=== PATIENT | male | born 1960 ===

== ENCOUNTER 2022-04-08 15:31 | Observation (INO) | payer MEDICARE ==
[~2022-04-08] VITALS: Ht 187.9 cm; Wt 84.0 kg
--- NOTE | 2022-04-08 18:33 | NUR ---
ASSUMPTION OF CARE PT ARRIVED TO PCU APPROX. 1710. HE WAS ABLE TO TRANSFER IND. TO RECLINER CHAIR. HE IS ALERT AND ORIENTED X 4. HE IS ABLE TO MAKE HIS NEEDS KNOWN AND ANSWERS QUESTIONS APPROPRIATELY. HE REPORTS RIGHT SHOULDER PAIN 2/10 BUT DENIES FEELINGS OF CHEST PAIN/PRESSURE. HE DENIES FEELINGS OF NAUSEA, NO COUGH NOTED. IV IN RIGHT AC IS SALINE LOCKED. HE WAS GIVEN SNACKS AND ATE 100%. HE HAS A SOFT NECK BRACE THAT HE REMOVED UPON ARRIVAL TO PCU. PT NOW WATCHING TV. CALL LIGHT IS WITHIN REACH. WILL CONTINUE TO MONITOR UNTIL REPORT GIVEN.
[2022-04-08 18:55] LABS: CPK Creatine Kinase 54 U/L (39-308)
[2022-04-09 02:19] LABS: BASOPHILS ABSOLUTE AUTO 0.04 K/mm3 (0.00-0.23); BASOPHILS PERCENT AUTO 0 % (0-2); EOSINOPHILS ABSOLUTE AUTO 0.17 K/mm3 (0.00-0.68); EOSINOPHILS PERCENT AUTO 2 % (0-6); Hematocrit 43.8 % (37.0-53.0); Hemoglobin 15.4 g/dL (13.5-17.5); IMMATURE GRAN ABSOLUTE AUTO 0.04 K/mm3 (0.00-0.10); IMMATURE GRAN PERCENT AUTO 0 % (0-1); LYMPHOCYTES ABSOLUTE AUTO 3.49 K/mm3 (0.84-5.20); LYMPHOCYTES PERCENT AUTO 35 % (21-46); MONOCYTES ABSOLUTE AUTO 1.18 K/mm3 (0.16-1.47); MONOCYTES PERCENT AUTO 12 % (4-13); Mean Corpuscular HGB 33.7 pg (26.0-34.0); Mean Corpuscular HGB Conc 35.2 g/dL (31.5-36.5); Mean Corpuscular Volume 96 fL (80-100); Mean Platelet Volume 10.4 fL (9.1-12.4); NEUTROPHILS ABSOLUTE AUTO 5.07 K/mm3 (1.96-9.15); NEUTROPHILS PERCENT AUTO 51 % (41-73); Platelet Count 257 K/mm3 (150-400); RDW Coefficient Variation 13.2 % (11.7-14.2); RDW Standard Deviation 46.6 fL (35.1-46.3); Red Blood Cell Count 4.57 M/mm3 (4.30-5.90); White Blood Cell Count 9.99 K/mm3 (4.00-11.30)
[2022-04-09 02:37] LABS: Albumin, Blood 2.8 g/dL (3.4-5.0); Albumin/Globulin Ratio 0.9 (0.8-1.8); Bilirubin, Total 0.3 mg/dL (0.1-1.0); Bun/Creatinine Ratio 23.1 (12.0-20.0); Calcium, Blood 8.5 mg/dL (8.5-10.1); Globulin, Blood 3.2 g/dL (2.2-4.0); Potassium, Blood 4.1 mmol/L (3.5-5.5)
[2022-04-09 02:39] LABS: CPK Creatine Kinase 40 U/L (39-308)
--- NOTE | 2022-04-09 05:37 | NUR ---
SHIFT SUMMARY PT IS A/Ox4 AND FOLLOWS DIRECTIONS GIVEN BY STAFF. PT HAS NOT REPORTED ANY CP OR CHEST PRESSURE T/O THE SHIFT. HIGH SENSITIVITY TROP HAS DECREASED SINCE YESTERDAY. PT NPO SINCE MIDNIGHT FOR STESS TEST THIS AM. PT ON HEPARIN DRIP RUNNING PER ORDERS. SEE EMAR FOR RATE. PT RPORTS OCCASIONAL RIGHT SHOULDER PAIN THAT DOES NOT RAIDIATE. BP STABLE RANGING IN THE 110'S WITH HR BEING SINUS. VSS, NADN T/O THE SHIFT
[2022-04-09] MEDS ORDERED: AMLODIPINE BES2.5 MG PO (09:14)
[2022-04-09] MEDS ORDERED: NEURONTIN300 MG PO (09:14)
[2022-04-09] MEDS ORDERED: CREON DR 24,001 EACH PO (09:15)
[2022-04-09] MEDS ORDERED: LISI20 PO (09:15)
[2022-04-09] MEDS ORDERED: BUPROPION HCL200 M1 PO (09:16)
--- NOTE | 2022-04-09 10:47 | NUR ---
AM NOTE: PATIENT ALERT AND ORIENTED X4. RECENT 03/24 CERVICAL SURG WITH 2 INCISION POSTERIOR NECK AND ONE INCISION ON RIGHT ANTERIOR NECK. F/U APPOINT ON TUESDAY. PATIENT NECK AND UPPER ARM ROM RESTRICTED. NO BENDING, LIFTING, OR TURNING. DENIES NUMBNESS/TINGLING. UP WITH SBA. ON ROOM AIR SATING ABOVE 95%. SMOKING HISTORY. LUNGS CLEAR IN UPPER AND COARSE IN LOWER. DENIES COUGH/SOB. TELE SHOWING SINUS RHYTHM WITH HR 70'S. DENIES CHEST PAIN/PRESSURE. DENIES ANY PALPITATIONS. PPP. HEPARIN GTT INFUSING PER EMAR. MURMUR HEARD. BP STABLE. PLAN FOR CARDIAC STRESS TEST STARTING 1105 AM. WILL BE NPO AT MIDNIGHT. DENIES ABDOMINAL PAIN/NAUSEA. TOLERATING PO DIET. [facility] SOFT DIET ORDERED. PATIENT STATES AT TIMES HARD TO SWALLOW WITH CERIVAL NECK SURG. PILLS WITH APPLESAUCE. SUCTION AT BEDSIDE. DENIES NEEDS AT THIS TIME. MED REC COMPLETED WITH PATIENT AND ACCURATE. HOME MEDS STILL NEED TO BE ORDERED, THIS RN WILL DISCUSS WITH DR. RHODES. CALL LIGHT IN REACH. WILL CONTINUE TO MONITOR.
[2022-04-09 11:42] LABS: CPK Creatine Kinase 31 U/L (39-308)
--- NOTE | 2022-04-09 17:42 | NUR ---
SHIFT SUMMARY: NO ACUTE CHANGES THROUGHOUT SHIFT. LUNG VQ SCAN COMPLETED. PATIENT UPDATED ON RESULTS. REMAINS ALERT AND ORIENTED X4. TELE CONTINUES TO SHOW SINUS RHYTHM WITH HR 80'S. BP STABLE. DENIES CHEST PAIN/PRESSURE. TOLERATING PO DIET. PLAN FOR CARDIAC STRESS TEST IN AM. NPO AT MIDNIGHT. PATIENT UPDATED ON PLAN. IN TO VISIT THIS AFTERNOON AND UPDATED. HEPARIN GTT CONTINUES TO INFUSE PER EMAR. CALL LIGHT IN REACH. DENIES NEEDS AT THIS TIME. WILL CONITNUE TO MONITOR AND REPORT OFF TO ONCOMING RN.
--- NOTE | 2022-04-09 21:53 | NUR ---
ASSUMPTION OF CARE THIS RN ASSUMED CARE OF PATIENT AT 1900. REPORT TAKEN FROM [facility]INE ANTHONY. PATIENT WITH STABLE VITALS. DENIES CHEST PAIN/PRESSURE. CERVICAL SURGICAL SITES ON NECK AND BACK OPEN TO AIR AND CLEAN/DRY. PATIENT DENIES NECK/SHOULDER PAIN AT THIS TIME. CONTINUES TO FOLLOW THE NO BENDING/TWISTING/LIFTING RESTRICTIONS. PATIENT WILL BE NPO AT MIDNIGHT FOR STRESS TEST IN THE AM. HEPARIN RUNNING AT 12/U/KG/HR. PATIENT INDEPENDENT WITH ADL'S. CALLS APPROPRIATELY. BED IN LOWEST POSITION AND CALL LIGHT WITHIN REACH.
[2022-04-10 04:16] LABS: BASOPHILS ABSOLUTE AUTO 0.05 K/mm3 (0.00-0.23); BASOPHILS PERCENT AUTO 1 % (0-2); EOSINOPHILS PERCENT AUTO 2 % (0-6); Hematocrit 41.7 % (37.0-53.0); Hemoglobin 14.7 g/dL (13.5-17.5); IMMATURE GRAN ABSOLUTE AUTO 0.03 K/mm3 (0.00-0.10); IMMATURE GRAN PERCENT AUTO 0 % (0-1); LYMPHOCYTES ABSOLUTE AUTO 3.16 K/mm3 (0.84-5.20); LYMPHOCYTES PERCENT AUTO 36 % (21-46); MONOCYTES ABSOLUTE AUTO 1.14 K/mm3 (0.16-1.47); MONOCYTES PERCENT AUTO 13 % (4-13); Mean Corpuscular HGB Conc 35.3 g/dL (31.5-36.5); Mean Corpuscular Volume 94 fL (80-100); Mean Platelet Volume 10.5 fL (9.1-12.4); NEUTROPHILS ABSOLUTE AUTO 4.15 K/mm3 (1.96-9.15); NEUTROPHILS PERCENT AUTO 48 % (41-73); Platelet Count 250 K/mm3 (150-400); RDW Coefficient Variation 12.6 % (11.7-14.2); RDW Standard Deviation 43.8 fL (35.1-46.3); Red Blood Cell Count 4.46 M/mm3 (4.30-5.90); White Blood Cell Count 8.73 K/mm3 (4.00-11.30)
--- NOTE | 2022-04-10 05:01 | NUR ---
SHIFT SUMMARY NO ACUTE CHANGES DURING THIS SHIFT. PATIENT ALERT AND ORIENTED X4. CALM AND COOPERATIVE WITH CARE. INDEPENDENT WITH ADL'S. HEPARIN INFUSING AT 10 U/KG/HR. APTT REDRAW WILL BE AT 1100 04/10. PATIENT HAS BEEN NPO SINCE MIDNIGHT. VITALS STABLE. NSR WITH HR 60-80S. SBP 130-140S. PATIENT DENIES CHEST PAIN/PRESSURE. MAINTAINING CERVICAL PRECAUTIONS. INCISIONS OPEN TO AIR AND CLEAN/DRY. PATIENT APPEARS TO BE RESTING WITH BED IN LOWES POSITION AND CALL LIGHT WITHIN REACH. THIS RN WILL CONTINUE TO MONITOR UNTIL SHIFT CHANGE AT 0700.
--- NOTE | 2022-04-10 09:28 | NUR ---
AM NOTE: PATIENT ALERT AND ORIENTED X4. DENIES NUMBNESS/TINGLING. CERVICAL PRECAUTIONS IN PLACE PER PATIENT, NO BLT. INCISIONS WNL. UP WITH SBA TO BATHROOM. TELE SHOWING SINUS RHYTHM WITH HR 70-80'S. DENIES CHEST PAIN/PRESSURE/PALPITATIONS. HEPARIN DISCONTINUED THIS AM. CARDIAC STRESS TEST DAY 1 STARTED AT 0820, PATIENT CURRENTLY DOWN AT IMAGING. BP STABLE. ON ROOM AIR SATING ABOVE 95%. DENIES SOB. LUNGS CLEAR AND DIM IN BASES. TOLERATING PO DIET. INTERMIT NPO WITH CARDIAC STRESS TEST. PLAN FOR NPO AT MIDNIGHT AGAIN, AND CARDIAC STRESS DIET RESTRICTIONS STARTING AT 1900. USING URINAL TO VOID. BOWEL TONES PRESENT. WILL CONTINUE TO MONITOR.
[2022-04-10 10:14] LABS: Cholesterol 151 mg/dL (50-200); HDL Cholesterol 50 mg/dL (>39); LDL/HDL RATIO 1.6; Low Density Lipoprotein Chol 80 mg/dL (0-110); Triglycerides 104 mg/dL (30-160); Very Low Density Lipoprot Chol 20 mg/dL (6-32)
--- NOTE | 2022-04-10 17:46 | NUR ---
SHIFT SUMMARY: NO ACUTE CHANGES. 1ST PART OF CARDIAC STRESS TEST COMPLETED THIS AM. PLAN FOR 2ND PART TOMORROW AM. NPO AT MIDNIGHT BESIDES WATER. NO CAFFIENE PAST 1900. PATIENT EDUCATED AND AWARE OF DIET RESTRICTIONS THIS EVENING. BP REMAINS STABLE. DENIES CHEST PAIN/PRESSURE THROUGHOUT SHIFT. TELE REMAINS SINUS RHYTHM WITH HR 60-70'S. REMAINS ON ROOM AIR. DENIES OVERALL PAIN. COMPLAINS OF STOOL LOOKING BLACK, THIS RN NOT ABLE TO VISUALIZE, DUE TO PAIENT FLUSHING DOWN TOILET. PATIENT EDUCATED TO NOT FLUSH AND SHOW RN NEXT BOWEL MOVEMENT. DENIES SEEING ANY RED/YOLANDA BLOOD IN STOOL. HEPARIN DISCONTINUED THIS AM. HGB REMAINS WNL, ALTHOUGH DOWNWARD TREND FROM PREVIOUS DAY. WILL ALERT ONCOMING SHIFT TO BE AWARE. USING URINAL TO VOID. TOLERATING PO DIET. IN TO VISIT AND UPDATED THIS SHIFT. CALL LIGHT IN REACH. SITTING IN RECLINER AT THIS TIME EATING DINNER. DENIES NEEDS. WILL CONTINUE TO MONITOR AND REPORT OFF TO ONCOMING RN.
--- NOTE | 2022-04-11 05:56 | NUR ---
SHIFT SUMMARY PT IS ALERT AND ORIENTED. THERE HAVE BEEN NO ACUTE CHANGES T/O THE NIGHT. PT DENIES CHEST PAIN/PRESSURE OR SOB. PT HAS REMAINED ON ROOM AIR WITH SATS ABOVE 92%. VITALS ARE STABLE. PT DENIES PAIN. PT IS ABLE TO AMBULATE TO BATHROOM WITH STANDBY ASSIST. CALL LIGHT IS WITHIN REACH.
--- NOTE | 2022-04-11 09:14 | NUR ---
AM NOTE: PATIENT REMAINS ALERT AND ORIENTED. CERVICAL NECK PRECAUTIONS IN PLACE. PATIENT STATES HE HAS RESTRICTIONS ON BENDING AND TWISTING. NECK BRACE AT BEDSIDE, PATIENT REFUSED TO WEAR. UP IND TO BATHROOM. ON ROOM AIR, LUNGS SOUNDING CLEAR. TELE SHOWING SINUS RHYTHM. HR 60-70'S. DENIES CP/P. BP STABLE. PPP. 2ND DAY OF CARDIAC STRESS TEST COMPLETED. RESULTS PENDING. THIS RN TO CALL DR. CASTILLO WITH RESULTS. AT BEDSIDE AND UPDATED. TOLERATING PO DIET. MECH SOFT. PATIENT REPORTED TO THIS RN YESTERDAY OF A "DARK STOOL". UNABLE TO VISUALIZE PATIENT HAD ALREADY FLUSHED. NO BOWEL MOVEMENTS SINCE. DENIES BLOOD IN STOOL. SCATTERED BRUISING FROM LAB DRAWS AND IV SITE. COMPLAINS OF SOME RIGHT SIDED SHOULDER SORNESS THAT HAS BEEN ONGOING SINCE CERVICAL SURG. DENIES NEEDS FOR ANY MEDICATION OF COLD/HEAT. REMAINS AT BEDSIDE THIS AM. CALL LIGHT IN REACH. WILL CONTINUE TO MONITOR.
--- NOTE | 2022-04-11 11:41 | NUR ---
CARDIAC STRESS TESTS RESULTED. THIS RN CALLED DR. CASTILLO TO UPDATE. NO NEW ORDERS FOR THIS RN TO PLACE. PATIENT UPDATED. AFTERNOON VITALS STABLE. DENIES PAINS. WILL CONTINUE TO MONITOR.
[2022-04-11] MEDS ORDERED: METO25ER PO (13:14)
--- NOTE | 2022-04-11 14:23 | NUR ---
DISCHARGE: NO ACUTE CHANGES. AT BEDSIDE. VITALS REMAINS STABLE. SEE PREVIOUS NOTE FOR MORE DETAIL UPDATE. DISCHARGE INSTRUCTIONS REVIEWED WITH AND PATIENT. BOTH PARTIES ABLE TO TEACH BACK ABOUT FOLLOW UP APPOINTMENTS, NEW MEDICATIONS, STOPPED MEDICATIONS AND SIGNS/SYMPTOMS OF CHEST PAIN. IV REMOVED WNL. PATIENT LEFT UNIT WITH , REFUSED WHEELCHAIR. ALL PERSONAL BELONGINGS AND DISCHARGE PACKET SENT HOME WITH PATIENT.
== END 2022-04-11 14:15 | disposition home or self-care (01) ==
LOC: PCU 15:31
PROVIDERS: Internal Medicine; Internal Medicine Cardiovascular Disease; ADMIT Nurse Practitioner Acute Care
DX: I47.1 Supraventricular tachycardia (principal); R77.8 Other specified abnormalities of plasma proteins; F17.210 Nicotine dependence, cigarettes, uncomplicated; G35 Multiple sclerosis; I10 Essential (primary) hypertension; E78.5 Hyperlipidemia, unspecified; R79.1 Abnormal coagulation profile; R21 Rash and other nonspecific skin eruption; Z88.1 Allergy status to other antibiotic agents; Z88.2 Allergy status to sulfonamides; Z88.8 Allergy status to other drugs, medicaments and biological substances; Z79.82 Long term (current) use of aspirin; Z82.49 Family history of ischemic heart disease and other diseases of the circulatory system; Z98.890 Other specified postprocedural states
CPT/HCPCS: 36415; 78452; 78580; 80053; 80061; 82550; 84484; 85025; 85379; 85730; 93017; 93306; 96361; 96372; 96374; 96376; A9270; A9500; A9540; G0378; J0706; J1644; J1650; J2785; J7030